=== PATIENT | male | born 1955 | race Caucasian/White ===

== ENCOUNTER → 2018-09-02 | Outpatient (CLI) | payer OTHER ==
--- NOTE | 2018-09-02 14:12 | REP ---
Low-dose lung screening CT: The study is performed without IV contrast. The images are presented at lung windowing only. There are no comparisons. There are no masses or nodules. There are no infiltrates or pleural effusions. Impression: Category [address] low-[address] CT. The probability of malignancy is less than 1%. Depending on risk factors, consider annual follow-up low-dose lung screening CT. Electronically Signed by Breezy Peterson MD 09/02/2018 02:04 P
== END ==
LOC: M RAD 11:16
PROVIDERS: ATTEND Internal Medicine Cardiovascular Disease
DX: Z12.2 Encounter for screening for malignant neoplasm of respiratory organs (principal); Z87.891 Personal history of nicotine dependence

== ENCOUNTER → 2018-12-18 | Outpatient (REF) | payer OTHER | LOC: M LAB REF 09:41 | PROVIDERS: ATTEND Ophthalmology | DX: L72.0 Epidermal cyst (principal) ==

== ENCOUNTER → 2020-06-02 | Outpatient (CLI) | payer MEDICARE, OTHER ==
--- NOTE | 2020-06-02 12:37 | REP ---
INDICATION: TOBACCO USE. COMPARISON: 09/02/2018.. TECHNIQUE: Low dose screening CT chest performed without the use of intravenous contrast. FINDINGS: Lungs: Clear, no infiltrate or nodule. Mild scattered interstitial fibrotic changes are visualized. Heart: Not enlarged. Thoracic aorta: No aneurysm. Visualized osseous structures: There are degenerative changes of the spine.. IMPRESSION: Category 1 negative low dose [address]contrast CT chest. Follow-up screening exam recommended in 1 year. <Electronically signed by Breezy Hutton > 06/02/20 [id number]
== END ==
LOC: M RAD 08:19
PROVIDERS: ATTEND Student in an Organized Health Care Education/Training Program
DX: Z12.2 Encounter for screening for malignant neoplasm of respiratory organs (principal)

== ENCOUNTER → 2021-01-04 | Outpatient (REF) ==
--- NOTE | 2021-01-04 12:26 | REP ---
INDICATION: DDD. COMPARISON: None TECHNIQUE: AP pelvis AP frog-lateral views each hip FINDINGS: There is severe bilateral asymmetric hip joint space narrowing right greater than left with bilateral subchondral sclerosis and subchondral cyst formation again, right greater than left. There is no acute fracture, dislocation, or subluxation. Degenerative changes are also seen involving the sacroiliac joints right greater than left. IMPRESSION: Advanced bilateral degenerative changes as described above. <Electronically signed by Quinten Fonseca > 01/04/21 [id number]
== END ==
LOC: M PLAIMG 11:23
PROVIDERS: ATTEND Internal Medicine
DX: M54.5 Low back pain (principal)

== ENCOUNTER → 2021-05-18 | Outpatient (CLI) | payer MEDICARE, OTHER ==
[~2021-05-18] MED LIST: ASPI1CHW2; ATEN50TA2; CYAN100050; EZET10TA21; HYDR-3490; REST0.05; SIMV40TA20; VITA1CAP25
--- NOTE | 2021-05-18 13:23 | REP ---
INDICATION: BILAT OSTEOARTHRITIS. COMPARISON: None. TECHNIQUE: Two views of the lower pelvis/hips. FINDINGS: Advanced bilateral osteoarthritic degenerative changes (right greater than left). Findings include subchondral sclerosis/heterogeneity with cystic changes, joint space narrowing, osteophytosis and possible loose bodies. Moderate peripheral vascular disease is also appreciated bilaterally. There is no evidence for acute fracture or dislocation. IMPRESSION: Advanced osteoarthritic degenerative changes of the bilateral hips (right greater than left). <Electronically signed by Rahat Alas > 05/18/21 [id number]
== END ==
LOC: M SOG 13:06
PROVIDERS: ATTEND Orthopaedic Surgery
DX: M16.0 Bilateral primary osteoarthritis of hip (principal)

== ENCOUNTER → 2021-05-25 | Outpatient (CLI) | payer MEDICARE, OTHER | LOC: M LABSMTC 10:06 | PROVIDERS: ATTEND Anesthesiology | DX: Z01.818 Encounter for other preprocedural examination (principal); Z11.52 Encounter for screening for COVID-19 ==